=== PATIENT | female | born 2005 | race Caucasian/White ===

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

== ENCOUNTER 2025-03-13 04:36 | Outpatient (OUT) | payer BC, SELFPAY ==
[2025-03-13 03:08] LABS: Hematocrit 40.0 % (36.0-48.0); Hemoglobin 13.4 g/dL (12.0-16.0); Immature Granulocytes Abs Auto 0.02 10^3/uL (0.00-0.03); Immature Granulocytes Pct Auto 0.3 % (0.0-0.5); Lymphocytes Absolute Auto 3.5 10^3/uL (1.2-3.8); Mean Corpuscular HGB Conc 33.5 g/dL (29.9-35.2); Mean Corpuscular Hemoglobin 29.7 pg (26.7-34.0); Mean Corpuscular Volume 88.7 fL (81.0-99.0); Platelet Count 379 10^3/uL (150-450); Red Blood Count 4.51 10^6/uL (4.20-5.40); White Blood Count 7.6 10^3/uL (4.0-11.0)
[2025-03-13 03:10] LABS: Glucose Urine UA NEGATIVE (NEGATIVE)
[2025-03-13 03:32] LABS: Alanine Aminotransferase 32 U/L (14-59); Albumin Globulin Ratio 0.9; Albumin Level 3.9 g/dL (3.4-5.0); Alkaline Phosphatase 108 U/L (46-116); Anion Gap 12.7; Aspartate Amino Transferase 21 U/L (15-37); Blood Urea Nitrogen 15.0 mg/dL (7.0-18.0); Calcium 9.6 mg/dL (8.5-10.1); Carbon Dioxide 26.7 mmol/L (21.0-32.0); Chloride 99 mmol/L (98-107); Cholesterol 259 mg/dL (<=200); Estimated GFR (African America >60 (>=60 mL/min/1.73m^2); Estimated GFR (Non-African Ame >60 (>=60 mL/min/1.73m^2); Globulin 4.2 g/dL; Glucose 92 mg/dL (74-106); HDL Cholesterol 106 mg/dL (40-60); Potassium 3.4 mmol/L (3.5-5.1); Sodium 135 mmol/L (136-145); Thyroid Stimulating Hormone 3.009 uIU/mL (0.358-3.740); Total Protein 8.1 g/dL (6.4-8.2); Triglycerides 84 mg/dL (<=150); VLDL CHOLESTEROL 16.8 mg/dL
--- OUTSIDE RECORDS SUMMARY | 2025-03-13 04:38 | XMS_ITS | CCD ---
Author Organization [facility] Care Team Providers Care Cancer Researcher Name Role Phone MISC, DOCTOR Admitting Unavailable MISC, DOCTOR Attending Unavailable AYANNA HERNANDEZ Referring Unavailable NO PCP, NO PCP Primary Care Unavailable Lawrence Jacobs MD Primary Care Provider [phone] Wanda TOOL BUILDER, Pia Unavailable WANDA, PIA Attending Unavailable AICHHOLZ, PIA Attending Unavailable BINAHOLZ, PIA Attending Unavailable WANDA, PIA Attending Unavailable WANDA, PIA Attending Unavailable Arnulfo Elise MD Primary Care Provider [phone] No Pcp, No Pcp Primary Care Provider Unavailabl e No Pcp, No Pcp Primary Care Provider Unavailabl e AYANNA HERNANDEZ Attending Unavailable NO PCP, NO PCP Primary Care Unavailable WHITNEY RUDD Attending Unavailable NO PCP, NO PCP Primary Care Unavailable Medications Current Medications Medication Drug Class(es) Dates Sig (Normalized) Sig (Original) Ethinyl Estradiol / norgestimate (20 sources) Progestin, Estrogen Start: 03-08-2025 take 1 tablet by mouth in the morning, then take 0.25 tablet by mouth once norgestimate-ethiny l estradioL (ROSARIO) 0.25-0.035 mg per tablet Indications: Encounter for surveillance of contraceptive pills Take 1 tablet by mouth in the morning. 84 tablet 3 03/08/2025 Active Start: 12-08-2024 End: 03-08-2025 take 1 tablet by mouth once daily in the morning, then take 0.25 tablet by mouth once norgestimate-ethinyl estradioL (ROSARIO) 0.25-0.035 mg per tablet Indications: Encounter for surveillance of contraceptive pills TAKE 1 TABLET BY MOUTH EVERY DAY IN THE MORNING 84 tablet 12/08/2024 03/08/2025 Discontinued (Reorder) Start: 12-08-2024 take 1 tablet by álvaro th once daily in the morning, then take 0.25 tablet by mouth once norgestimate-ethinyl estradioL (ROSARIO) 0.25-0.035 mg per tablet Indications: Encounter for surveillance of contraceptive pills TAKE 1 TABLET BY MOUTH EVERY DAY IN THE MORNING 84 tablet 12/08/2024 Active Start: 12-23-2023 End: 12-08-2024 take 1 tablet by mouth once in the morning norgestimate-ethinyl estradioL (ROSARIO) 0.25-35 mg-mcg per tablet Indications: Encounter for surveillance of contraceptive pills Take 1 tablet by mouth in the morning. 84 tablet 3 12/23/2023 12/08/2024 Discontinued Start: 12-23-2023 End: 12-22-2024 take 1 tablet by mouth once in the morning norgestimate-ethinyl estradioL (ROSARIO) 0.25-35 mg-mcg per tablet Indications: Encounter for surveillance of contraceptive pills Take 1 tablet by mouth in the morning. 84 tablet 3 12/23/2023 12/22/2024 Active Start: 10-19-2023 take 1 tablet by álvaro th in the morning Rosario 0.25-35 MG-MCG tablet Take 1 tablet by mouth in the morning. 10/19/2023 Active Start: 10-19-2023 End: 12-23-2023 take 1 tablet by mouth once daily in the morning norgestimate-ethinyl estradioL (ROSARIO) 0.25-35 mg-mcg per tablet Indications: Encounter for surveillance of contraceptive pills TAKE 1 TABLET BY MOUTH EVERY DAY IN THE MORNING 84 tablet 10/19/2023 12/23/2023 Discontinued (Reorder) Start: 10-19-2023 take 1 tablet by álvaro th once daily in the morning norgestimate-ethinyl estradioL (ROSARIO) 0.25-35 mg-mcg per tablet Indications: Encounter for surveillance of contraceptive pills TAKE 1 TABLET BY MOUTH EVERY DAY IN THE MORNING 84 tablet 0 10/19/2023 Active Start: 10-05-2023 take 1 tablet by álvaro th once daily Norgestimate-Ethinyl Estradiol (Rosario) 0.25-35 mg-mcg tablet Active 1 TAB PO Daily October 05, 2023 1:00am Start: 09-15-2022 End: 10-19-2023 take 1 tablet by mouth once in the morning norgestimate-ethinyl estradioL (ROSARIO) 0.25-35 mg-mcg per tablet Indications: Encounter for surveillance of contraceptive pills Take 1 tablet by mouth in the morning. 84 tablet 3 09/15/2022 10/19/2023 Discontinued fluconazole 150 mg oral tablet (1 source) Azole Antifungal Start: 03-22-2024 End: 03-22-2024 take 1 tablet by mouth once fluconazole (DIFLUCAN) 150 mg tablet Indications: Yeast vaginitis Take 1 tablet (150 mg total) by mouth once for 1 dose. 1 tablet 03/22/2024 03/22/2024 Active sertraline 100 mg oral tablet (20 sources) Serotonin Reuptake Inhibitor Start: 03-12-2025 End: 06-10-2025 take 1 tablet by mouth once daily sertraline (Zoloft) 100 MG tablet Indications: Generalized anxiety disorder with panic attacks Take 1 tablet (100 mg) by mouth Daily 90 tablet 03/12/2025 06/10/2025 Active Start: 11-25-2023 End: 03-14-2025 take 1 tablet by mouth once daily sertraline (Zoloft) 50 MG tablet Indications: Generalized anxiety disorder with panic attacks Take 1 tablet (50 mg) by mouth Daily 90 tablet 12/14/2024 03/12/2025 Discontinued (Reorder) Start: 10-05-2023 take 2 tablets by mo ut in the morning sertraline (ZOLOFT) 25 mg tablet Take 2 tablets (50 mg total) by mouth in the morning. 10/05/2023 Active Start: 10-05-2023 sertraline (ZO LOFT) 25 mg tablet Daily 10/05/2023 Active Problems Active Problems Problem Classification Problem Date Documented Date Episodic/Chronic Anxiety disorders (20 sources) Generalized anxiety disorder; Translations: [Generalized anxiety disorder] Onset: 08-16-2023 Resolved: 09-08-2023 09-08-2023 Chronic Menstrual disorders (9 sources) Intermenstrual bleeding - irregular; Translations: [Excessive and frequent menstruation with irregular cycle] Onset: 07-09-2020 07-09-2020 Chronic Other female genital disorders (1 source) Abnormal uterine bleeding; Translations: [Other specified abnormal uterine and vaginal bleeding] 02-29-2024 Chronic Other nutritional; endocrine; and metabolic disorders (11 sources) Body mass index 25-29 - overweight; Translations: [Overweight] Onset: 06-14-2024 06-14-2024 Episodic Past or Other Problems Problem Classification Problem Date Documented Date Episodic/Chronic Contraceptive and procreative management (20 sources) Patient encounter status; Translations: [Encounter for contraceptive management, unspecified] Onset: 01-23-2020 10-04-2023 Episodic Immunizations and screening for infectious disease (3 sources) Encounter for screening for infections with a predominantly sexual mode of transmission; Translations: [Patient encounter status] Onset: 03-14-2024 03-14-2024 Episodic Inflammatory diseases of female pelvic organs (2 sources) Acute vaginitis; Translations: [Acute vaginitis] Onset: 03-14-2024 03-14-2024 Episodic Mood disorders (8 sources) Mood disorders Onset: 12-23-2023 12-23-2023 Mycoses (1 source) Candidiasis of vagina; Translations: [Yeast vaginitis] 03-22-2024 Episodic Other female genital disorders (2 sources) Other specified noninflammatory disorders of vagina; Translations: [Other specified noninflammatory disorders of vagina] Onset: 03-14-2024 Episodic Other female genital disorders (2 sources) Vaginal discharge; Translations: [Other specified noninflammatory disorders of vagina] Onset: 03-14-2024 03-14-2024 Episodic Other female genital disorders (1 source) Vaginal odor; Translations: [Other specified noninflammatory disorders of vagina] 03-14-2024 Episodic Other upper respiratory infections (8 sources) Acute upper respiratory infection; Translations: [Acute upper respiratory infection, unspecified] Onset: 10-11-2023 Resolved: 11-25-2023 11-25-2023 Episodic Residual codes; unclassified (8 sources) Body mass index 20-24 - normal; Translations: [Body mass index (BMI) 24.0-24.9, adult] Onset: 10-04-2023 Resolved: 06-14-2024 10-04-2023 Episodic Syncope (8 sources) Syncope; Translations: [Syncope and collapse] Onset: 08-16-2023 08-16-2023 Episodic Results Test Name Value Interpretation Reference Range Facility HEPATITIS B SURF AB QUANTon 08-18-2024 HEPATITIS B SURF AB QUANT <3.5 Abnormal Immunity>10 mIU/mL [facility] Comment on above: Status of Immunity Anti-HBs Level Inconsistent with Immunity 0.0 - 10.0 Consistent with Immunity >10.0 MEASLES/MUMPS/RUBELLA IMMUNI TYon 08-18-2024 MEASLES ANTIBODIES, IGG 26.8 AU/mL Immune >16.4 [facility] Comment on above: Negative <13.5 Equivocal 13.5 - 16.4 Positive >16.4 Presence of antibodies to Rubeola is presumptive evidence of immunity except when acute infection is suspected. MUMPS ABS, IGG <9.0 Abnormal Immune >10.9 AU/mL [facility] Comment on above: Negative <9.0 Equivocal 9.0 - 10.9 Positive >10.9 A positive result generally indicates past exposure to Mumps virus or previous vaccination. Performed at: [address] [id number] Usability Strategist: Twin Vazquez PhD, Phone: [phone] RUBELLA ANTIBODIES, IGG 2.69 Immu ne >0.99 index [facility] Comment on above: Non-immune <0.90 Equivocal 0.90 - 0.99 Immune >0.99 No Panel Informationon 08-18 Interpretation and review of laboratory results Abnormal [facility] VARICELLA-ZOSTER V AB, IGGon 08-18-2024 VARICELLA-ZOSTER V AB, IGG Non-Reactive Non Reactive [facility] Comment on above: Please note refere nce interval change A Reactive result is considered evidence of immunity to VZV. Reactive indicates that VZV IgG was detected consistent with previous infection and/or vaccination. A Non Reactive result indicates that VZV IgG was not detected suggesting that immunity has not been acquired. Performed at: [address] [id number] Usability Strategist: Twin Vazquez PhD, Phone: [phone] CHLAMYDIA/GC BY PCRon 2023 CHLAMYDIA/GC BY PCR SPECIMEN SOURCE CERVIX SWAB CHLAMYDIA DNA(PCR) Negative (qualifier value) Chlamydia trachomatis not detected by nucleic acid amplification. This does not exclude the possibility of infection because results are dependent on adequate specimen collection. GONORRHOEAE DNA(PCR) Negative (qualifier value) Neisseria gonorrhoeae not detected by nucleic acid amplification. This does not exclude the possibility of infection because results are dependent on adequate specimen collection. Normal [facility] Comment on above: Performed By: #### C GS #### [facility] ([id number]) [address], [address] [place] [address] VAGINITIS PANEL PCRon 2023 VAGINITIS PANEL PCR BACT. VAGINOSIS DNA Not detected (qualifier value) Qualitative results are reported based on detection and quantitation of targeted organism markers which include: Lactobacillus spp. (L. crispatus and L. jensenii), Gardnerella vaginalis, Atopobium vaginae, Bacterial Vaginosis Associated Bacteria-2 (BVAB-2) and Megasphaera-1 KIAH SPECIES DNA Detected (qualifier value) Kiah species result based on detection of one or more of the following species: C. albicans, C. tropicalis, C. parapsilosis or C. dubliniensis KIAH KRUSEI DNA Not detected (qualifier value) No Kiah krusei detected KIAH GLABRATA DNA Not detected (qualifier value) No Kiah glabrata detected TRICHOMONAS VAG DNA Not detected (qualifier value) No Trichomonas vaginalis detected NOTE BD MAX Vaginal Panel has not been evaluated for patients under 18 years old. Results for these patients should be reviewed and assessed in accordance with clinical presentation to determine patient diagnosis. Normal [facility] Comment on above: Performed By: #### V PPCR #### [facility] ([id number]) [address], [address] [place] [address] No Panel InformationOrdered By: Naomie Prakash on 01-13-2024 Quick Strep (POC) [facility] Consultation Noteon 05-12-20 21 Consultation Note [id number]#1.00CD:127 [facility] Discharge Documentationon Discharge Documentation [id number]#1.00CD:127 [facility] ED Note-Physicianon 02-18-20 ED Note-Physician [id number]#1.00CD:127 [facility] Consultation Noteon 08-27-19 Consultation Note [id number]#1.00CD:127 [facility] Consultation Noteon 06-17-20 Consultation Note [id number]#1.00CD:127 [facility] Consultation Noteon 06-03-20 Consultation Note [id number]#1.00CD:127 [facility] Vital Signs Date Time Vital Sign Value Performing Clinician Facility 03-12-2025 08:45-0400 Body mass index (BMI) [Ratio] 28.09 kg/m2 Pia Muñoz TOOL BUILDER Work Phone: [facility] 03-12-2025 08:45-0400 Body temperature 97.81 [degF] Pia Muñoz TOOL BUILDER Work Phone: [facility] 03-12-2025 08:45-0400 Body weight 87.54 kg Pia Muñoz TOOL BUILDER Work Phone: [facility] 03-12-2025 08:45-0400 Diastolic blood pressure 84 mm[Hg] Pia Muñoz TOOL BUILDER Work Phone: [facility] 03-12-2025 08:45-0400 Heart rate 97 /min Pia Muñzo TOOL BUILDER Work Phone: [facility] 03-12-2025 08:45-0400 Respiratory rate 18 /min Pia Muñoz TOOL BUILDER Work Phone: [facility] 03-12-2025 08:45-0400 SaO2% (BldA) [Mass fraction] 98 % Pia Muñoz TOOL BUILDER Work Phone: [facility] 03-12-2025 08:45-0400 Systolic blood pressure 122 mm[Hg] Pia Wanda TOOL BUILDER Work Phone: [facility] 03-08-2025 08:58-0400 Body height 175.3 cm Whitney MacMain PRISM MEASURER-QUALITY ASSURANCE Work Phone: [facility] 03-08-2025 08:58-0400 Body mass index (BMI) [Ratio] 28.56 kg/m2 Whitney MacMain PRISM MEASURER-QUALITY ASSURANCE Work Phone: [facility] 03-08-2025 08:58-0400 Body weight 87.73 kg Whitney MacMain PRISM MEASURER-QUALITY ASSURANCE Work Phone: [facility] 03-08-2025 08:58-0400 Diastolic blood pressure 64 mm[Hg] Whitney MacMain PRISM MEASURER-QUALITY ASSURANCE Work Phone: [facility] 03-08-2025 08:58-0400 Systolic blood pressure 108 mm[Hg] Whitney MacMain PRISM MEASURER-QUALITY ASSURANCE Work Phone: [facility] 06-14-2024 13:39-0500 Body height 176.5 cm Pia Wanda TOOL BUILDER Work Phone: [facility] 06-14-2024 13:39-0500 Body mass index (BMI) [Ratio] 26.72 kg/m2 Pia Wanda TOOL BUILDER Work Phone: [facility] 06-14-2024 13:39-0500 Body temperature 97.81 [degF] Pia Wanda TOOL BUILDER Work Phone: [facility] 06-14-2024 13:39-0500 Body weight 83.28 kg Pia Wanda TOOL BUILDER Work Phone: [facility] 06-14-2024 13:39-0500 Diastolic blood pressure 78 mm[Hg] Pia Wanda TOOL BUILDER Work Phone: [facility] 06-14-2024 13:39-0500 Heart rate 89 /min Pia Jangivonne TOOL BUILDER Work Phone: [facility] 06-14-2024 13:39-0500 Respiratory rate 18 /min Pia Jangivonne TOOL BUILDER Work Phone: [facility] 06-14-2024 13:39-0500 SaO2% (BldA) [Mass fraction] 98 % Pia Jangivonne TOOL BUILDER Work Phone: [facility] 06-14-2024 13:39-0500 Systolic blood pressure 110 mm[Hg] Pia Jangivonne TOOL BUILDER Work Phone: [facility] 03-14-2024 13:25-0400 Body mass index (BMI) [Ratio] 26.19 kg/m2 Ayanna Hernandez MD Work Phone: [facility] 03-14-2024 13:25-0400 Body weight 80.47 kg Ayanna Hernandez MD Work Phone: [facility] 03-14-2024 13:25-0400 Diastolic blood pressure 76 mm[Hg] Ayanna Hernandez MD Work Phone: [facility] 03-14-2024 13:25-0400 Systolic blood pressure 114 mm[Hg] Ayanna Hernandez MD Work Phone: [facility] 02-29-2024 09:22-0400 Body mass index (BMI) [Ratio] 25.98 kg/m2 Ayanna Hernandez MD Work Phone: [facility] 02-29-2024 09:22-0400 Body weight 79.83 kg Ayanna Hernandez MD Work Phone: [facility] 02-29-2024 09:22-0400 Diastolic blood pressure 80 mm[Hg] Ayanna Hernandez MD Work Phone: [facility] 02-29-2024 09:22-0400 Systolic blood pressure 106 mm[Hg] Ayanna Hernandez MD Work Phone: [facility] 01-13-2024 18:42-0400 Body height 175.26 cm [facility] 01-13-2024 18:42-0400 Body mass index (BMI) [Percentile] Per age and sex 78.5 % [facility] 01-13-2024 18:42-0400 Body mass index (BMI) [Ratio] 25 kg/m2 [facility] 01-13-2024 18:42-0400 Body temperature 98.4 [degF] [facility] 01-13-2024 18:42-0400 Body weight 76.77 kg [facility] 01-13-2024 18:42-0400 Heart rate 82 /min [facility] 01-13-2024 18:42-0400 Respiratory rate 18 /min [facility] 01-13-2024 18:42-0400 SaO2% (BldA) [Mass fraction] 98 % [facility] 12-23-2023 15:43-0400 Body height 175.3 cm [facility] 12-23-2023 15:43-0400 Body mass index (BMI) [Ratio] 24.8 kg/m2 [facility] 12-23-2023 15:43-0400 Body weight 76.2 kg [facility] 12-23-2023 15:43-0400 Diastolic blood pressure 70 mm[Hg] [facility] 12-23-2023 15:43-0400 Systolic blood pressure 116 mm[Hg] [facility] Encounters Encounter Date Encounter Type Care Provider Facility Start: 03-12-2025 End: 03-12-2025 Bamboo flowsheet Pia Muñoz NP Work Phone: [facility] Start: 03-12-2025 End: 03-12-2025 Bamboo flowsheet Pia Muñoz NP Work Phone: [facility] Start: 03-12-2025 End: 03-12-2025 Office outpatient visit 15 minutes Pia Muñoz TOOL BUILDER Work Phone: [facility] Comment on above: Generalized anxiety disorder with panic attacks (Primary Dx); Encounter for adult wellness visit; Overweight (BMI 25.0-29.9) Start: 03-12-2025 End: 03-12-2025 Patient encounter status Pia Muñoz NP Work Phone: [facility] Start: 03-08-2025 End: 03-08-2025 Office outpatient visit 15 minutes Whitney Bowen [facility] PRISM MEASURER-QUALITY ASSURANCE Work Phone: [facility] Comment on above: Encounter for survei llance of contraceptive pills Start: 03-08-2025 End: 03-08-2025 ambulatory [facility] Start: 02-28-2025 End: 02-28-2025 Refill Pia Rodriguez PRISM MEASURER-QUALITY ASSURANCE Work Phone: [facility] Comment on above: Encounter for survei llance of contraceptive pills Start: 12-14-2024 End: 12-14-2024 Refill Pia Muñoz TOOL BUILDER Work Phone: [facility] Comment on above: Generalized anxiety disorder with panic attacks (CMS/HCC) Start: 12-08-2024 End: 12-08-2024 Refill Brandy Irving PRISM MEASURER-CNM Work Phone: [facility] Comment on above: Encounter for survei llance of contraceptive pills Start: 08-17-2024 End: 08-18-2024 [facility] Result Encounter Rebeca Pino NP Work Phone: [facility] Unsolicited Start: 08-17-2024 End: 08-18-2024 [facility] Result Encounter Rebeca Pino TOOL BUILDER Work Phone: [facility] Unsolicited Start: 06-14-2024 End: 06-14-2024 Bamboo flowsheet Pia Muñoz TOOL BUILDER Work Phone: [facility] Start: 06-14-2024 End: 06-14-2024 Bamboo flowsheet Pia Muñoz TOOL BUILDER Work Phone: [facility] Start: 06-14-2024 End: 06-14-2024 Office outpatient visit 15 minutes Pia Wanda TOOL BUILDER Work Phone: [facility] Comment on above: Generalized anxiety disorder with panic attacks (CMS/HCC) (Primary Dx); Overweight (BMI 25.0-29.9) Start: 06-14-2024 End: 06-14-2024 ambulatory PIA WANDA Not Available Start: 03-22-2024 End: 03-22-2024 Orders Only Whitney Rudd PRISM MEASURER-QUALITY ASSURANCE Work Phone: [facility] Comment on above: Yeast vaginitis (Judith frank Dx) Start: 03-18-2024 End: 03-18-2024 Telephone encounter Brandy Irving PRISM MEASURER-CNM Work Phone: [facility] Start: 03-14-2024 End: 03-14-2024 ambulatory [facility] Start: 03-14-2024 End: 03-14-2024 Office outpatient visit 15 minutes Ayanna Hernandez MD Work Phone: [facility] Comment on above: Vaginal discharge (P rimary Dx); Vaginal odor; Acute vaginitis; Screening for STD (sexually transmitted disease) Start: 03-14-2024 End: 03-14-[address] [facility] Start: 02-29-2024 End: 02-29-2024 Office outpatient visit 25 minutes Ayanna Hernandez MD Work Phone: [facility] Comment on above: DUB (dysfunctional u terine bleeding) (Primary Dx) Start: 01-13-2024 End: 01-13-2024 ambulatory [facility] Work Phone: Start: 01-13-2024 End: 01-13-2024 Patient encounter procedure [facility] Work Phone: Start: 12-23-2023 End: 12-23-2023 Office outpatient visit 15 minutes [facility] Top [facility] Comment on above: Encounter for survei llance of contraceptive pills (Primary Dx) Start: 11-25-2023 End: 11-25-2023 ambulatory PIA AICHHOLZ Not Available Start: 10-16-2023 Refill Chelsea Macias DO Work Phone: [facility] Comment on above: Encounter for survei llance of contraceptive pills Start: 10-11-2023 End: 10-11-2023 ambulatory PIA AICHHOLZ Not Available Start: 10-04-2023 End: 10-04-2023 ambulatory PIA AICHHOLZ Not Available Start: 09-08-2023 End: 09-08-2023 ambulatory PIA AICHHOLZ Not Available Start: 07-10-2019 Patient encounter procedure [facility] Facility: Procedures Date Procedure Procedure Detail Performing Clinician Start: 08-17-2024 HEPATITIS B SURF AB QUANT Rebeca Pino TOOL BUILDER Work Phone: Start: 08-17-2024 MEASLES/MUMPS/RUBELL A IMMUNITY Rebeca Pino TOOL BUILDER Work Phone: Start: 08-17-2024 VARICELLA-ZOSTER V A B, IGG Rebeca Pino TOOL BUILDER Work Phone: Start: 01-13-2024 Quick Strep (POC) Start: 12-23-2023 Adult depression screening assessment [facility]ws Top Screw Plan of Treatment Date Care Activity Detail Author Start: 11-25-2033 DTaP,Tdap and Td Vaccines (8 - Td or Tdap) DTaP,Tdap and Td Vaccines (8 - Td or Tdap) [facility] Start: 03-08-2026 Adult BMI Screening Adult BMI Screen ing [facility] Start: 03-08-2026 Tobacco Screening Tobacco Screening [facility] Start: 12-24-2025 DTaP,Tdap and Td Vaccines (7 - Td or Tdap) DTaP,Tdap and Td Vaccines (7 - Td or Tdap) [facility] Start: 05-14-2025 End: 05-14-2025 Patient encounter procedure 05/14/2025 8:40 AM EDT Office Visit [facility] [address] [place] [address] Pia Muñoz, TOOL BUILDER [address] [place] [address] [facility] Start: 04-09-2025 Influenza vaccination P [facility] Start: 03-29-2025 End: 03-29-2025 Patient encounter procedure 03/29/2025 8:30 AM EDT [facility] [address] [place] [id number] Whitney Rudd, PRISM MEASURER-QUALITY ASSURANCE [address] [place], [place] [id number] [facility] Start: 03-14-2025 Adult BMI Screening Adult BMI Screen ing [facility] Start: 03-14-2025 Screening for Chlamy mike trachomatis Chlamydia Screening [facility] Start: 03-14-2025 Tobacco Screening Tobacco Screening [facility] Start: 03-12-2025 End: 03-12-2026 CBC W Auto Differential panel - Blood CBC and differential Lab Routine Encounter for adult wellness visit Expected: 03/12/2025 (Approximate), Expires: 03/12/2026 [facility] [facility] Phone: Comment on above: Expected: 03/12/2025 (Approximate), Expires: 03/12/2026 Start: 03-12-2025 End: 03-12-2026 Comprehensive metabolic 2000 panel - Serum or Plasma Comprehensive metabolic panel Lab Routine Encounter for adult wellness visit Expected: 03/12/2025 (Approximate), Expires: 03/12/2026 [facility] Comment on above: Expected: 03/12/2025 (Approximate), Expires: 03/12/2026 Start: 03-12-2025 End: 03-12-2026 Lipid 1996 panel - Serum or Plasma Lipid panel Lab Routine Encounter for adult wellness visit Expected: 03/12/2025 (Approximate), Expires: 03/12/2026 [facility] Comment on above: Expected: 03/12/2025 (Approximate), Expires: 03/12/2026 Start: 03-12-2025 End: 03-12-2026 Thyrotropin [Units/volume] in Serum or Plasma TSH Lab Routine Encounter for adult wellness visit Expected: 03/12/2025 (Approximate), Expires: 03/12/2026 [facility] Comment on above: Expected: 03/12/2025 (Approximate), Expires: 03/12/2026 Start: 03-12-2025 End: 03-12-2026 Thyroxine (T4) free [Mass/volume] in Serum or Plasma T4, free Lab Routine Encounter for adult wellness visit Expected: 03/12/2025 (Approximate), Expires: 03/12/2026 [facility] Comment on above: Expected: 03/12/2025 (Approximate), Expires: 03/12/2026 Start: 03-12-2025 End: 03-12-2026 Urinalysis complete panel - Urine Urinalysis with reflex microscopic (clean catch) Lab Routine Encounter for adult wellness visit Expected: 03/12/2025 (Approximate), Expires: 03/12/2026 [facility] Comment on above: Expected: 03/12/2025 (Approximate), Expires: 03/12/2026 Start: 03-12-2025 End: 03-12-2025 Patient encounter procedure 03/12/2025 8:40 AM EDT Office Visit [facility] [address] [place] [address] Pia Muñoz NP [address] [place] [address] Generalized anxiety disorder with panic attacks (Primary Dx) [facility] Comment on above: Generalized anxiety disorder with panic attacks (Primary Dx) Start: 02-28-2025 Adult BMI Screening Adult BMI Screen [facility] Start: 02-28-2025 Tobacco Screening Tobacco Screening [facility] Start: 02-21-2025 Screening for malign ant neoplasm of cervix Pap Smear [facility] Start: 12-22-2024 Adult BMI Screening Adult BMI Screen ing [facility] Start: 12-22-2024 Depression Screening Depression Scre ening [facility] Start: 12-22-2024 Tobacco Screening Tobacco Screening [facility] Start: 12-12-2024 End: 12-12-2024 Patient encounter procedure 12/12/2024 9:20 AM EDT Office Visit [facility] [address] [place] [address] Pia Muñoz, TOOL BUILDER [address] [place] [address] [facility] Start: 06-14-2024 End: 06-14-2024 Patient encounter procedure 06/14/2024 1:40 PM EST Office Visit [facility] [address] [place] [address] Pia Muñoz, TOOL BUILDER [address] [place] [address] Arrived [facility] Comment on above: Arrived Start: 04-09-2024 COVID-19 Vaccine () COVID-19 Vaccine ( season) [facility] Start: 04-09-2024 Influenza vaccination Influenza Vacc ine [facility] Start: 03-14-2024 End: 03-14-2024 Patient encounter procedure 03/14/2024 11:15 AM EDT Office Visit [facility] [address] [place] [id number] Ayanna Hernandez MD [address] [place] [address] [facility] Start: 03-01-2024 Tobacco Screening Tobacco Screening [facility] Start: 03-01-2024 Subsequent hospital visit by physician 03/01/2024 1:30 PM EDT Hospital Encounter [facility] - Ultrasound [address] [place] [address] [facility] - Ultrasound Start: 02-29-2024 End: 02-28-2025 US Pelvis transabdominal and transvaginal Ultrasound pelvic with transvaginal Imaging Routine DUB (dysfunctional uterine bleeding) Expected: 02/29/2024, Expires: 02/28/2025 [facility] Work Phone: Comment on above: Expected: 02/29/2024 , Expires: 02/28/2025 Start: 04-09-2023 COVID-19 Vaccine () COVID-19 Vaccine () [facility] Start: 04-09-2023 Influenza vaccination Influenza Vacc ine [facility] Start: 02-21-2022 Adult BMI Follow Up Plan Adult BMI Follow Up Plan [facility] Start: 02-21-2022 Adult BMI Screening Adult BMI Screen ing [facility] Start: 2016 Depression Screening Depression Scre ening [facility] Start: 2004 Screening for Chlamy mike trachomatis Chlamydia Screening [facility] End: 02-28-2025 CBC panel - Blood by Automated count CBC without diff Lab Routine DUB (dysfunctional uterine bleeding) 1 Occurrences starting 02/29/2024 until 02/28/2025 [facility] Comment on above: 1 Occurrences starti ng 02/29/2024 until 02/28/2025 End: 03-14-2025 Chlamydia/GC by PCR Susana Swab Chlamydia/GC by PCR Susana Swab Microbiology Routine Vaginal discharge Vaginal odor Screening for STD (sexually transmitted disease) 1 Occurrences starting 03/14/2024 until 03/14/2025 [facility] Comment on above: 1 Occurrences starti ng 03/14/2024 until 03/14/2025 End: 02-28-2025 Follicle stimulating hormone Follicle stimulating hormone Lab Routine DUB (dysfunctional uterine bleeding) 1 Occurrences starting 02/29/2024 until 02/28/2025 [facility] Comment on above: 1 Occurrences starti ng 02/29/2024 until 02/28/2025 End: 02-28-2025 HCG, Quantitative, HCG, Quantitative, Lab Routine DUB (dysfunctional uterine bleeding) 1 Occurrences starting 02/29/2024 until 02/28/2025 [facility] Comment on above: 1 Occurrences starti ng 02/29/2024 until 02/28/2025 End: 02-28-2025 Luteinizing hormone Luteinizing hormone Lab Routine DUB (dysfunctional uterine bleeding) 1 Occurrences starting 02/29/2024 until 02/28/2025 [facility] Comment on above: 1 Occurrences starti ng 02/29/2024 until 02/28/2025 End: 02-28-2025 Prolactin Prolactin Lab Routine DUB (dysfunctional uterine bleeding) 1 Occurrences starting 02/29/2024 until 02/28/2025 [email or web address] above: 1 Occurrences starti ng 02/29/2024 until 02/28/2025 End: 02-28-2025 Thyrotropin [Units/volume] in Serum or Plasma TSH Lab Routine DUB (dysfunctional uterine bleeding) 1 Occurrences starting 02/29/2024 until 02/28/2025 [facility] Comment on above: 1 Occurrences starti ng 02/29/2024 until 02/28/2025 End: 02-28-2025 Thyroxine (T4) free [Mass/volume] in Serum or Plasma T4, free Lab Routine DUB (dysfunctional uterine bleeding) 1 Occurrences starting 02/29/2024 until 02/28/2025 [facility] Comment on above: 1 Occurrences starti ng 02/29/2024 until 02/28/2025 End: 03-14-2025 Vaginitis Panel PCR Vaginitis Panel PCR Microbiology Routine Vaginal discharge Vaginal odor Screening for STD (sexually transmitted disease) 1 Occurrences starting 03/14/2024 until 03/14/2025 [facility] Work Phone: Comment on above: 1 Occurrences starti ng 03/14/2024 until 03/14/2025 Immunizations Immunization Date Immunization Notes Care Provider Nano roberts 09-20-2024 hepatitis B vaccine, adult dosage Pia Muñoz NP Work Phone: [facility] 05-08-2024 influenza, seasonal, injectable, preservative free Pia Aichholz TOOL BUILDER Work Phone: [facility] 05-08-2024 influenza virus vacc ine, unspecified formulation Whitney Rudd [employer] Work Phone: [facility] 11-26-2023 tetanus toxoid, redu dejuan diphtheria toxoid, and acellular pertussis vaccine, adsorbed Pia Aichholz TOOL BUILDER Work Phone: [facility] 07-21-2023 Influenza, High-dose Seasonal, Quadrivalent, Preservative Free Pia Aichholz TOOL BUILDER Work Phone: [facility] 07-21-2023 influenza virus vacc ine, unspecified formulation Pfws Top Screw [facility] 02-07-2021 Pfizer Purple Cap SARS-CoV-2 Vaccination Pia Aichholz TOOL BUILDER Work Phone: [facility] 01-17-2021 Pfizer Purple Cap SARS-CoV-2 Vaccination Pia Aichholz TOOL BUILDER Work Phone: [facility] 12-16-2020 meningococcal oligosaccharide (groups A, C, Y and W-135) diphtheria toxoid conjugate vaccine (MCV4O) Pia Aichholz TOOL BUILDER Work Phone: [facility] 05-16-2020 Influenza, injectabl e, Madin [place] Canine Kidney, preservative free, quadrivalent Pia Aichholz TOOL BUILDER Work Phone: [facility] 05-16-2020 influenza virus vacc ine, unspecified formulation Chelsea Macias DO Work Phone: [facility] 01-13-2017 Human Papillomavirus 9-valent vaccine Pia Aichholz TOOL BUILDER Work Phone: [facility] 04-21-2016 Human Papillomavirus 9-valent vaccine Pia Aichholz TOOL BUILDER Work Phone: [facility] 12-25-2015 hepatitis A vaccine, pediatric/adolescent dosage, 2 dose schedule Pia Aichholz TOOL BUILDER Work Phone: [facility] 12-25-2015 meningococcal polysaccharide (groups A, C, Y and W-135) diphtheria toxoid conjugate vaccine (MCV4P) [facility] Work Phone: [facility] 12-25-2015 tetanus toxoid, redu dejuan diphtheria toxoid, and acellular pertussis vaccine, adsorbed [facility] TO[facility] Work Phone: [facility] 03-11-2015 hepatitis A vaccine, pediatric/adolescent dosage, 2 dose schedule [facility] Work Phone: [facility] 06-10-2012 influenza virus vacc ine, live, attenuated, for intranasal use [facility] Work Phone: [facility] 05-13-2011 influenza virus vacc ine, live, attenuated, for intranasal use [facility] Work Phone: [facility] 05-07-2010 influenza virus vacc ine, live, attenuated, for intranasal use [facility] Work Phone: [facility] 06-18-2009 novel Influenza-H1N1 -09, live virus for nasal administration Pia [facility] TOOL BUILDER Work Phone: [facility] 05-08-2009 influenza virus vacc ine, live, attenuated, for intranasal use [facility] Work Phone: [facility] 01-18-2009 diphtheria, tetanus toxoids and acellular pertussis vaccine Pia Aicholz TOOL BUILDER Work Phone: [facility] 01-18-2009 measles, mumps and rubella virus vaccine Pia Aichholz TOOL BUILDER Work Phone: [facility] 01-18-2009 poliovirus vaccine, inactivated [facility] Work Phone: [facility] 01-18-2009 varicella virus vaccine Pia Aicholz TOOL BUILDER Work Phone: [facility] 09-19-2008 influenza, seasonal, injectable, preservative free [facility] Work Phone: [facility] 07-31-2008 influenza, seasonal, injectable, preservative free Piagene Reyesz TOOL BUILDER Work Phone: [facility] 11-29-2006 varicella virus vaccine Piagene Reyesz TOOL BUILDER Work Phone: [facility] 06-02-2005 diphtheria, tetanus toxoids and pertussis vaccine Piagene Jangholz TOOL BUILDER Work Phone: [facility] 06-02-2005 hepatitis B vaccine, pediatric or pediatric/adolescent dosage Pia Ericz TOOL BUILDER Work Phone: [facility] 06-02-2005 measles, mumps and rubella virus vaccine Pia Muluholz TOOL BUILDER Work Phone: [facility] 02-24-2005 haemophilus influenz ae type b vaccine, PRP-T conjugate [facility] Work Phone: [facility] 2004 DTaP-hepatitis B and poliovirus vaccine Pia Muluholz TOOL BUILDER Work Phone: [facility] 2004 haemophilus influenz ae type b vaccine, conjugate unspecified formulation Pia Muluholz TOOL BUILDER Work Phone: [facility] 2004 pneumococcal conjuga te vaccine, 7 valent Pia Muluholz TOOL BUILDER Work Phone: [facility] 2004 DTaP-hepatitis B and poliovirus vaccine Pia Aicholz TOOL BUILDER Work Phone: [facility] 2004 haemophilus influenz ae type b vaccine, conjugate unspecified formulation Pia Aicholz TOOL BUILDER Work Phone: [facility] 2004 pneumococcal conjuga te vaccine, 7 valent Pia Aicholz TOOL BUILDER Work Phone: [facility] 2004 DTaP-hepatitis B and poliovirus vaccine Pia Aichholz TOOL BUILDER Work Phone: [facility] 2004 haemophilus influenz ae type b vaccine, conjugate unspecified formulation Pia Muñoz TOOL BUILDER Work Phone: [facility] 2004 pneumococcal conjuga te vaccine, 7 valent Pia Muñoz TOOL BUILDER Work Phone: [facility] Payers Date Payer Category Payer [facility] BCBS [id number] 2021 [employer] - PPO ANTHEM [id number] 2021 Unknown CARL MACHUCA SS (PPO) [id number] 2021-Present [phone] [address] [place] [address] [id number] 2021 Unknown [id number] 2004 Unknown [id number] 2004 Unknown [id number] 2004 Unknown [id number] [id number] 2004 Unknown [id number] 1259 2004 Unknown [id number] 1259 2004 Unknown [id number] 1259 2004 Unknown [id number] 1259 2004 Unknown [id number] 2004 Unknown [id number] 1959 Self-pay [id number] Self-pay Self Pay [id number] Unknown O [id number] Social History Date Type Detail Facility Start: 03-04-2018 End: 08-16-2023 Tobacco smoking status NHIS Never smoked tobacco (finding) [facility] Start: 2004 Sex Assigned At Female [facility] Start: 09-15-2022 End: 08-16-2023 Tobacco use and exposure Smokeless tobacco non-user [facility] Start: 11-25-2023 End: 03-12-2025 Alcoholic beverage intake Lifetime non-drinker (finding) [facility] Start: 09-01-2023 End: 03-08-2025 History of Social function [facility] Start: 09-01-2023 End: 03-08-2025 Humiliation, Afraid, Rape, and Kick questionnaire [HARK] [facility] Within the last year , have you been afraid of your partner or ex-partner? No [facility] Are you now , , , , never or living with a partner? Patient declined [facility] How often to you hav e a drink containing alcohol? Never [facility] Do you feel stress - tense, restless, nervous, or anxious, or unable to sleep at night because your mind is troubled all the time - these days [OSQ] To some extent [facility] (I/We) worried wheth er (my/our) food would run out before (I/we) got money to buy more. Never true [facility] Start: 2004 Sex assigned at Not on file [facility] Start: 03-14-2015 Sex Female (finding) [facility] Are you now , , , , never or living with a partner? Never [facility] How often to you hav e a drink containing alcohol? 2-4 times a month [facility] How many standard dr inks containing alcohol do you have on a typical day? 3 or 4 [facility] How often do you hav e 6 or more drinks on 1 occasion? Less than monthly [facility] Clinical Notes 10-16-2023 to 03-12-2025 Pia Muñoz NP - 03/12/2025 9:00 AM EZEQUIEL HOLDER 03/12/2025 8:40 AM Hakeem Muñoz NP - 03/12/2025 8:40 AM Hakeem Muñoz NP - 03/12/2025 6:25 AM EDTPatient Instructions Note Date & Type Note Facility 03-12-2025 History of Presen t illness Narrative Associated Problem(s): Encounter for adult wellness visit No wellness exam Pt would like to increase the sertraline 50mg Images from the original note were not included. Isamar Thomas is a 20 y.o. female presents with chief complaint of ED HPI: Anxiety: feels as though it is worsening, more panic sxs when out in public: racing heart, light headed, similar sxs in beginning prior to starting sertraline No new stressors, goes to nursing school. 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 HENT: Negative for congestion, ear pain and sore throat. Eyes: Negative for pain, discharge, redness and visual disturbance. Respiratory: Negative for cough, shortness of breath and wheezing. Cardiovascular: Positive for palpitations. Negative for chest pain and leg swelling. Gastrointestinal: Negative for abdominal pain, blood in stool, constipation, diarrhea, nausea and vomiting. Genitourinary: Negative for difficulty urinating, dysuria and frequency. Musculoskeletal: Negative for arthralgias, back pain, joint swelling and myalgias. Skin: Negative for rash and wound. Neurological: Negative for dizziness, tremors, seizures, syncope and headaches. Psychiatric/Behavioral: Negative for behavioral problems, self-injury and suicidal ideas. The patient is nervous/anxious. Hematological: Does not bruise/bleed easily. Endocrine: Negative for polydipsia, polyphagia and polyuria. Allergic/Immunologic: Negative for environmental allergies and food allergies. PAST MEDICAL HISTORY Past Medical History: Diagnosis Date Fainting Panic attacks Past Surgical History: Procedure Laterality Date WISDOM TOOTH EXTRACTION N/A 2022 family history is not on file. OBJECTIVE: Visit Vitals BP 122/84 (BP Location: Left arm, Patient Position: Sitting, BP Cuff Size: Adult long) Pulse 97 Temp 97.8 F (Temporal) Resp 18 Wt 193 lb SpO2 98% BMI 28.09 kg/m Smoking Status Never BSA 2.07 m Physical Exam Vitals and nursing note reviewed. Constitutional: General: She is not in acute distress. Appearance: Normal appearance. HENT: Head: Normocephalic and atraumatic. Right Ear: External ear normal. Left Ear: External ear normal. Nose: Nose normal. Mouth/Throat: Mouth: Mucous membranes are moist. Eyes: Extraocular Movements: Extraocular movements intact. Conjunctiva/sclera: Conjunctivae normal. Cardiovascular: Rate and Rhythm: Normal rate and regular rhythm. Pulses: Normal pulses. Heart sounds: Normal heart sounds. Pulmonary: Effort: Pulmonary effort is normal. Breath sounds: Normal breath sounds. No wheezing or rhonchi. Abdominal: General: Bowel sounds are normal. There is no distension. Palpations: Abdomen is soft. There is no mass. Tenderness: There is no abdominal tenderness. Musculoskeletal: General: Normal range of motion. Cervical back: Normal range of motion and neck supple. Right lower leg: No edema. Left lower leg: No edema. Skin: General: Skin is warm and dry. Capillary Refill: Capillary refill takes 2 to 3 seconds. Findings: No rash. Neurological: General: No focal deficit present. Mental Status: She is alert and oriented to person, place, and time. Psychiatric: Mood and Affect: Mood normal. Behavior: Behavior normal. Thought Content: Thought content normal. Judgment: Judgment normal. ASSESSMENT AND PLAN: Follow up in about 2 months (around 05/12/2025) for Recheck. Problem List Items Addressed This Visit Generalized anxiety disorder with panic attacks - Primary Current meds: sertraline, will increase to 100mg daily Called into [facility], e scribing not working 9:04am Also recommend regular exercise to help with stress as well Fu in 8 weeks Relevant Medications sertraline (Zoloft) 100 MG tablet Overweight (BMI 25.0-29.9) Encounter for adult wellness visit No wellness exam Relevant Orders CBC and differential Comprehensive metabolic panel Lipid panel TSH T4, free Urinalysis with reflex microscopic (clean catch) Associated Problem(s): Generalized anxiety disorder with panic attacks Current meds: sertraline, will increase to 100mg daily Called into [facility] scribing not working 9:04am Also recommend regular exercise to help with stress as well Fu in 8 weeks documented in this encounter [facility] 03-12-2025 Instructions Pia Muñoz NP - 03/12/2025 8:40 AM EDT Take medication only as directed. This medication will take approximately 4-6 weeks to become effective. If any suicidal thoughts, thoughts of hurting others, or hallucinations contact the office or proceed to the Emergency Room for mental health evaluation. Medication may cause dry mouth, dizziness, and in some cases worsening in depression symptoms. Please contact the office if these occur. documented in this encounter [facility] 03-08-2025 History of Presen t illness Narrative Subjective Isamar Thomas is a 20 y.o. female who presents for annual control follow up. She is happy with her control and would like to continue. She take the pill daily, no trouble remembering to take it. Her periods are normal with no breakthrough bleeding or spotting. She declines STI screening today. She does not smoke or vape Last pap: n/a, due as she just turned 20 yo Do you have a history of the following: Blood clots/clotting disorders: no Stroke: no Heart disease: no Breast CA: no Impaired liver function: no 35+ and smoking: no Migraine with aura: no High blood pressure: no The following portions of the patient's history were reviewed and updated as appropriate: allergies, current medications, past family history, past medical history, past social history, past surgical history, problem list, and medication reconciliation was completed including current medication and post discharge medication. Review of Systems 10 or more systems reviewed and all negative except stated in hpi. Objective Vitals: 03/08/25 0858 BP: 108/64 Physical Exam Vitals and nursing note reviewed. Constitutional: General: She is not in acute distress. Appearance: Normal appearance. She is not ill-appearing. HENT: Head: Normocephalic and atraumatic. Nose: No rhinorrhea. Eyes: Extraocular Movements: Extraocular movements intact. Neck: Thyroid: No thyroid mass or thyroid tenderness. Cardiovascular: Rate and Rhythm: Normal rate and regular rhythm. Heart sounds: Normal heart sounds. Pulmonary: Effort: Pulmonary effort is normal. No respiratory distress. Breath sounds: Normal breath sounds. Musculoskeletal: General: Normal range of motion. Cervical back: Normal range of motion. Skin: General: Skin is warm and dry. Neurological: General: No focal deficit present. Mental Status: She is alert. Psychiatric: Mood and Affect: Mood normal. Behavior: Behavior normal. Thought Content: Thought content normal. Judgment: Judgment normal. Assessment/Plan Isamar is a 20 y.o. female, continuing OCP (estrogen/progesterone), no contraindications. 1. Encounter for surveillance of contraceptive pills - norgestimate-ethinyl estradioL (ROSARIO) 0.25-0.035 mg per tablet; Take 1 tablet by mouth in the morning. Dispense: 84 tablet; Refill: 3 Reviewed ACHES - Pt to immediately present to ED for the following: A- Abdominal Pain C- Chest Pain H- Increase in frequency/severity of headaches E- Eye/Vision Problems S- Severe Leg Pain or swelling RTO annual exam and first pap SHEILA Vick 03/08/25 0914 documented in this encounter [facility] 02-28-2025 Miscellaneous Notes Needs appointment for annual / first pap. No refills sent. documented in this encounter [facility] 07-23-2025 Telephone encounter Note Needs appointment for annual / first pap. No refills sent. [facility] 12-14-2024 Telephone encounter Note Pt needs a fu appt please [place] [facility] 12-14-2024 Miscellaneous Notes Pt needs a fu appt please [place] documented in this encounter [facility] 06-14-2024 History of Presen t illness Narrative Associated Problem(s): Generalized anxiety disorder with panic attacks (CMS/HCC) Doing well on current meds No changes in dose Fu in 6 month Make sure takes time for stress relief opportunities Images from the original note were not included. Isamar Thomas is a 19 y.o. female presents with chief complaint of No chief complaint on file. HPI: Her for recheck of ED: No SI/HI/hallucinations Sleep: good Appetite: Exercise: Stressors: Side effects of meds: SUBJECTIVE: MEDICATIONS: Current Outpatient Medications Medication Instructions Rosario 0.25-35 MG-MCG tablet 1 tablet, Oral, Every morning sertraline (ZOLOFT) 50 mg, Oral, Daily ALLERGIES: No Known Allergies REVIEW OF SYMPTOMS: Review of Systems Constitutional: Negative for appetite change, chills and fever. HENT: Negative for congestion, ear pain and sore throat. Eyes: Negative for pain, discharge, redness and visual disturbance. Respiratory: Negative for cough, shortness of breath and wheezing. Cardiovascular: Negative for chest pain, palpitations and leg swelling. Gastrointestinal: Negative for abdominal pain, blood in stool, constipation, diarrhea, nausea and vomiting. Genitourinary: Negative for difficulty urinating, dysuria and frequency. Musculoskeletal: Negative for arthralgias, back pain, joint swelling and myalgias. Skin: Negative for rash and wound. Neurological: Negative for dizziness, tremors, seizures, syncope and headaches. Psychiatric/Behavioral: Negative for behavioral problems, self-injury and suicidal ideas. The patient is not nervous/anxious. Hematological: Does not bruise/bleed easily. Endocrine: Negative for polydipsia, polyphagia and polyuria. Allergic/Immunologic: Negative for environmental allergies and food allergies. PAST MEDICAL HISTORY Past Medical History: Diagnosis Date Fainting Panic attacks (CMS/HCC) Past Surgical History: Procedure Laterality Date WISDOM TOOTH EXTRACTION N/A 2022 family history is not on file. OBJECTIVE: Visit Vitals BP 110/78 (BP Location: Left arm, Patient Position: Sitting, BP Cuff Size: Adult long) Pulse 89 Temp 97.8 F (Temporal) Resp 18 Ht 5' 9.5 Wt 183 lb 9.6 oz SpO2 98% BMI 26.72 kg/m Smoking Status Never BSA 2.02 m Physical Exam Vitals and nursing note reviewed. Constitutional: General: She is not in acute distress. Appearance: Normal appearance. HENT: Head: Normocephalic and atraumatic. Right Ear: External ear normal. Left Ear: External ear normal. Nose: Nose normal. Mouth/Throat: Mouth: Mucous membranes are moist. Eyes: Extraocular Movements: Extraocular movements intact. Conjunctiva/sclera: Conjunctivae normal. Cardiovascular: Rate and Rhythm: Normal rate and regular rhythm. Pulses: Normal pulses. Heart sounds: Normal heart sounds. Pulmonary: Effort: Pulmonary effort is normal. Breath sounds: Normal breath sounds. Abdominal: General: Bowel sounds are normal. There is no distension. Palpations: Abdomen is soft. There is no mass. Tenderness: There is no abdominal tenderness. Musculoskeletal: General: Normal range of motion. Cervical back: Normal range of motion and neck supple. Right lower leg: No edema. Left lower leg: No edema. Skin: General: Skin is warm and dry. Capillary Refill: Capillary refill takes 2 to 3 seconds. Findings: No rash. Neurological: General: No focal deficit present. Mental Status: She is alert and oriented to person, place, and time. Psychiatric: Mood and Affect: Mood normal. Behavior: Behavior normal. Thought Content: Thought content normal. Judgment: Judgment normal. ASSESSMENT AND PLAN: Follow up in about 6 months (around 12/12/2024) for Recheck. 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 Take some time for your self to relax documented in this encounter [facility] 03-22-2024 History of Presen t illness Narrative Rx sent to pharmacy. Orders Placed or Reconciled This Encounter Medications fluconazole (DIFLUCAN) 150 mg tablet Sig: Take 1 tablet (150 mg total) by mouth once for 1 dose. Dispense: 1 tablet Refill: 0 - SHEILA Hauser 03/22/24 2:52 PM SHEILA Vick 03/22/24 1452 documented in this encounter [facility] 03-18-2024 Miscellaneous Notes Call to pt. To discuss results and VM reached. VM left advising pt. To call office Wednesday for results. Will send note to [facility] for pt. Notification of vaginitis swab + for yeast and if pt. Is symptomatic, let us know and we can send Rx. And staff to discuss prevention strategies, I.e. sleeping w/out underwear, use of cotton underwear and no thongs, no internal cleansing, use of only a mild soap externally. documented in this encounter [facility] 03-18-2024 Telephone encounter Note Call to pt. To discuss results and VM reached. VM left advising pt. To call office Wednesday for results. Will send note to [facility] for pt. Notification of vaginitis swab + for yeast and if pt. Is symptomatic, let us know and we can send Rx. And staff to discuss prevention strategies, I.e. sleeping w/out underwear, use of cotton underwear and no thongs, no internal cleansing, use of only a mild soap externally. [facility] 03-14-2024 History of Presen t illness Narrative Subjective: Isamar Thomas is a 19 y.o. female who presents for evaluation of an abnormal vaginal discharge. Symptoms have been present for 2 days. Vaginal symptoms: discharge described as creamy and odor. Contraception: OCP (estrogen/progesterone). Patient denies pelvic pain. NO FEVERS CHILLS NAUSEA VOMITING DIARRHEA CONSTIPATION NO NEW SEX PARTNERS REPORTED The following portions of the patient's history were reviewed and updated as appropriate: allergies, current medications, past family history, past medical history, past social history, past surgical history, problem list, and medication reconciliation was completed including current medication and post discharge medication. Review of Systems Review of Systems Objective: Physical Exam BP 114/76 Wt 80.5 kg (177 lb 6.4 oz) LMP 2024 BMI 26.19 kg/m Physical Exam GEN AAOX3, NAD HEENT UNREMARKABLE HEART RRR LUNGS CTAB ABD BENIGN, OBESE, NTND PELVIS: EG APPROP FOR AGE, NO LESIONS VAGINA APPROP FOR AGE, NO LESIONS BIMANUAL NO MASSES OR TENDERNESS RECTAL DEFERRED EXTREM NO CCE, NO CALF TENDERNESS Assessment: VAGINAL ODOR AND DISCHARGE VAGINITIS VAGINAL CULTURES PERFORMED AWAIT RESULTS Plan: Symptomatic local care discussed. Educational materials distributed. Discussed safe sex. MD Kyra MYERS RN documented in this encounter [facility] 02-29-2024 History of Presen t illness Narrative Isamar Thomas is a 19 y.o.female. No LMP recorded.. She presents today for irregular period this month which started 1 week early and is still going after 7 days. DENIES NEW SEXUA L PARTNERS WORRISOME TO HER Current contraception:oral contraceptives (estrogen/progesterone) OB History 0 Para 0 Term 0 0 AB 0 Living 0 SAB 0 IAB 0 Ectopic 0 Multiple 0 Live Births 0 MEDICAL HX No past medical history on file. SURGICAL HX No past surgical history on file. FAMILY HX Family History Problem Relation Age of Onset Heart disease Maternal Grandmother Diabetes Paternal Grandfather Blood Clots Neg Hx MEDS Current Outpatient Medications Medication Sig Dispense Refill norgestimate-ethinyl estradioL (ROSARIO) 0.25-35 mg-mcg per tablet Take 1 tablet by mouth in the morning. 84 tablet 3 No current facility-administered medications for this visit. ALLERGIES No Known Allergies Review of Systems Review of Systems Objective There were no vitals taken for this visit. Physical Exam BP 106/80 Wt 79.8 kg (176 lb) LMP 2024 BMI 25.98 kg/m Assessment/Plan: ABNORMAL UTERINE BLEEDING X1 CYCLE ALSO ON ZOLOFT PRESENTLY TAKING ORTHO-CYCLEN GENERIC DUB LABS AND PELVIC SONO ORDERED RETURN TO OFFICE TO DISCUSS RESULTS KEEP MENSTRUAL CALENDAR MD Kyra MYERS RN documented in this encounter [facility] [employer] [facility] 12-23-2023 History of Presen t illness Narrative HPI Subjective Isamar Thomas is a 18 y.o. female who presents for contraception follow up. Current contraception: OCP (estrogen/progesterone). Periods are regular every 28-30 days, lasting 5 days. Dysmenorrhea: mild, occurring throughout menses. Cyclic symptoms include none. No intermenstrual bleeding, spotting, or discharge. Pt. Denies having missed dosing and desires to continue OCPs. The patient has no complaints today. Relationship status: in a relationship Children NO Sexually active: Yes Contraception: oral contraceptives (estrogen/progesterone) student college non-smoker Pertinent past medical history: none. HPV vaccinated: yes PHQ9 screenin Menstrual History: 12/09/2023 x5days The following portions of the patient's history were reviewed and updated as appropriate: allergies, current medications, past family history, past medical history, past social history, past surgical history, problem list, and medication reconciliation was completed including current medication and post discharge medication. Review of Systems Pertinent items as noted in HPI Objective Vitals: 116/70 Body mass index is 24.8 kg/m . Physical Exam Vitals and nursing note reviewed. Constitutional: Appearance: Normal appearance. She is normal weight. HENT: Head: Normocephalic and atraumatic. Eyes: Conjunctiva/sclera: Conjunctivae normal. Neck: Thyroid: No thyroid mass, thyromegaly or thyroid tenderness. Trachea: Trachea normal. Cardiovascular: Rate and Rhythm: Normal rate and regular rhythm. Heart sounds: Normal heart sounds. Pulmonary: Effort: Pulmonary effort is normal. Breath sounds: Normal breath sounds. Abdominal: General: Abdomen is flat. There is no distension. Palpations: Abdomen is soft. There is no mass. Tenderness: There is no abdominal tenderness. There is no guarding or rebound. Hernia: No hernia is present. Musculoskeletal: Cervical back: Neck supple. No rigidity or tenderness. Lymphadenopathy: Cervical: No cervical adenopathy. Neurological: Mental Status: She is alert. Lab Review N/A Assessment / Plan Isamar was seen today for contraception. Diagnoses and all orders for this visit: Encounter for surveillance of contraceptive pills - norgestimate-ethinyl estradioL (ROSARIO) 0.25-35 mg-mcg per tablet; Take 1 tablet by mouth in the morning. 18 y.o. continuing OCP (estrogen/progesterone), no contraindications. Patient desires to continue OCP/rosario Refill provided Discussed ACHES acronym warning signs r/t slight increased risk of blood clot w/hormonal control Educational information provided. All questions answered. Discussed recommendations for HPV vaccine and pt. States she has rec.'d Advised condom use to prevent STIs RTO 1yr. CHESTER RODRIGEZ, GRACE Curtis APRN, APRN-CNM 12/23/23 2208 documented in this encounter [facility] 10-16-2023 Miscellaneous Notes Patient will need an appointment prior to any further refills being provided. documented in this encounter [facility] 10-16-2023 Telephone encounter Note Patient will need an appointment prior to any further refills being provided. [facility] Evaluation note No assessment inform ation available [facility] Work Phone: Evaluation note Diagnosis Generalized anxiety disorder with panic attacks (CMS/HCC)- Primary Generalized anxiety disorder with panic attacks (CMS/HCC)- Primary BMI 24.0-24.9, adult Generalized anxiety disorder with panic attacks (CMS/HCC)- Primary Generalized anxiety disorder with panic attacks (CMS/HCC)- Primary Overweight (BMI 25.0-29.9) Overweight documented in this encounter [facility]* Diagnosis Encounter for surveillance of contraceptive pills- Primary documented in this encounter [facility]* Diagnosis Encounter for surveillance of contraceptive pills documented in this encounter [facility]* Diagnosis DUB (dysfunctional uterine bleeding)- Primary Other disorder of menstruation and other abnormal bleeding from female genital tract documented in this encounter [facility]* Diagnosis Vaginal discharge- Primary Leukorrhea, not specified as infective Vaginal odor Unspecified symptom associated with female genital organs Acute vaginitis Unspecified vaginitis and vulvovaginitis Screening for STD (sexually transmitted disease) documented in this encounter [facility]* Diagnosis Yeast vaginitis- Primary documented in this encounter [facility]* Diagnosis Encounter for surveillance of contraceptive pills documented in this encounter [facility]* Diagnosis Generalized anxiety disorder with panic attacks (CMS/HCC)- Primary Generalized anxiety disorder with panic attacks (CMS/HCC)- Primary BMI 24.0-24.9, adult Generalized anxiety disorder with panic attacks (CMS/HCC)- Primary Generalized anxiety disorder with panic attacks (CMS/HCC)- Primary Overweight (BMI 25.0-29.9) Overweight Generalized anxiety disorder with panic attacks (CMS/HCC) documented [facility] encounter [facility]* Diagnosis Encounter for surveillance of contraceptive pills [facility] Diagnosis Encounter for surveillance of contraceptive pills documented [facility] Diagnosis Generalized anxiety disorder with panic attacks- Primary Generalized anxiety disorder with panic attacks- Primary BMI 24.0-24.9, adult Generalized anxiety disorder with panic attacks- Primary Generalized anxiety disorder with panic attacks- Primary Overweight (BMI 25.0-29.9) Overweight Generalized anxiety disorder with panic attacks- Primary Encounter for adult wellness visit Overweight (BMI 25.0-29.9) Overweight documented in this encounter [facility]ructionsNot on filedocumented in this encounter[facility] SystemInstructionsNot on filedocumented in [facility] SystemInstructionsNot on filedocumented in [facility] SystemInstructionsNot on filedocumented in this [facility] InstructionsNot on filedocumented in [facility] InstructionsNot on filedocumented in [facility] Summary Purpose Family History No Family History Records FoundNo Family History Records FoundNo Family History Records FoundNo Family History Records FoundNo Family History Records Found Advance Directives Advance Directive Response Recorded Date/ Time Advance Directives No September 10:30am Chief Complaint and Reason for Visit Chief Complaint Sore throat Additional Source Comments INFORMATION SOURCE (unrecogn ized section and content) DATE CREATED AUTHOR 07/05/2019 [facility] DATE CREATED AUTHOR AUTHOR'S ORGANIZ ATION 05/12/2021 [facility] DATE CREATED AUTHOR AUTHOR'S ORGANIZ ATION 03/17/2024 [facility] DATE CREATED AUTHOR AUTHOR'S ORGANIZ ATION 06/16/2024 [facility] DATE CREATED AUTHOR AUTHOR'S ORGANIZ ATION 03/10/2025 [facility] Care Teams (unrecognized sec tion and content) Team Status: Active Member Role Status Dates PHYSICIAN NO FAMILY Primary Care Provider Active Team Status: Inactive Member Role Status Dates PHYSICIAN NO FAMILY Primary Care Provider Active Start: January 13, 2024 End: January 13, 2024 Naomie Prakash APRN Attending Provider Active S tart: January 13, 2024 End: January 13, 2024 Cancer Researcher Relationship Specialty Start Date End Date Lawrence Jacobs MD [address] [place] [phone] PCP - General Family Medicine 10/04/23 Pia Muñoz NP [address] [place] [address] PCP - [employer] 10/08/23 Cancer Researcher Relationship Specialty Start Date End Date Lawrence Jacobs MD [address] [place] [phone] PCP - General Family Medicine 10/04/23 Pia Muñoz NP [address] [place] [address] PCP - [employer] 10/08/23 Cancer Researcher Relationship Specialty Start Date End Date Lawrence Jacobs MD [address] [place] [phone] PCP - General Family Medicine 10/04/23 Pia Muñoz NP [address] [place] [phone] PCP - [employer] 10/08/23 Cancer Researcher Relationship Specialty Start Date End Date Arnulfo Elise MD [address] [facility] [address] [place] [address] PCP - General Pediatrics 01/18/20 Cancer Researcher Relationship Specialty Start Date End Date Arnulfo Elise MD [address] [facility] [address] [place] [address] PCP - General Pediatrics 01/18/20 Cancer Researcher Relationship Specialty Start Date End Date No Pcp, [place] [address] PCP - General Family Medicine 03/01/24 Cancer Researcher Relationship Specialty Start Date End Date No Pcp, [place] [address] PCP - General Family Medicine 03/01/24 Cancer Researcher Relationship Specialty Start Date End Date No Pcp, [place] [address] PCP - General Family Medicine 03/01/24 Cancer Researcher Relationship Specialty Start Date End Date No Pcp, [place] [address] PCP - General Family Medicine 03/01/24 Cancer Researcher Relationship Specialty Start Date End Date Lawrence Jacobs MD [address] [place] [phone] PCP - General Family Medicine 10/04/23 Pia Muñoz NP [address] [place] [address] PCP - [employer] 10/08/23 Cancer Researcher Relationship Specialty Start Date End Date No Pcp, [place] [address] PCP - General Family Medicine 03/01/24 Cancer Researcher Relationship Specialty Start Date End Date Lawrence Jacobs MD [address] [place] [phone] PCP - General Family Medicine 10/04/23 Pia Muñoz NP [address] [place] [phone] PCP - [employer] 10/08/23 Cancer Researcher Relationship Specialty Start Date End Date Lawrence Jacobs MD [address] [place] [address] PCP - General Family Medicine 10/04/23 Pia Muñoz NP [address] [place] [phone] PCP - [facility] 10/08/23 Goals (unrecognized section and content) Goals may be documented in a n alternate sectionNot on filedocumented as of this encounterNot on filedocumented as of this encounterNot on filedocumented as of this encounterNot on filedocumented as of this encounterNot on filedocumented as of this encounterNot on filedocumented as of this encounterNot on filedocumented as of this encounterNot on filedocumented as of this encounterNot on filedocumented as of this encounter Reason for Visit (unrecogniz ed section and content) Reason Comments Contraception Reason Comments Med Refill Reason Comments Menstrual Problem Reason Comments Vaginal Discharge Patient relates she started having white discharge with odor about 2 days. Reason Comments ED FOR RECORDS PERTAINING TO PATIENTS WHO ARE OR HAVE BEEN ENROLLED IN A CHEMICAL DEPENDENCY/SUBSTANCEABUSE PROGRAM, SOME INFORMATION MAY BE OMITTED. This clinical summary was aggregated from multiple sources. Caution should be exercised in using it in the provision of clinical care. This summary normalizes information from multiple sources, and as a consequence, information in this document may materially change the coding, format and clinical context of patient data. In addition, data may be omitted in some cases. CLINICAL DECISIONS SHOULD BE BASED ON THE PRIMARY CLINICAL RECORDS. [email or web address] provides no warranty or guarantee of the accuracy or completeness of information in this document.
== END 2025-03-13 04:37 | disposition home or self-care (01) ==
PROVIDERS: PCP Nurse Practitioner; Visit Provider Nurse Practitioner
DX: Z00.00 Encounter for general adult medical examination without abnormal findings (principal)
CPT/HCPCS: 36415; 80053; 80061; 81003; 84439; 84443; 85025